=== PATIENT | female | born 2005 | race African-American/Black ===

== ENCOUNTER 2024-02-10 18:23 | Emergency (ER) | payer OTHER ==
--- NOTE | 2024-02-10 19:14 | ER ---
Nurse's Notes [facility] Name: Lolita Garcia Age: 19 yrs Sex: Female : 2005 Arrival Date: 02/10/2024 Time: 18:23 Bed 12 Private MD: Diagnosis: Syncope;Anemia complicating , third trimester Presentation: 02/09 19:04 Chief complaint: Patient states: I passed out at work a couple hours ago , has not been iw taking her prenatals, is anemic, is approx 32 weeks . Coronavirus screen: At this time, the client does not indicate any symptoms associated with coronavirus-19. Ebola Screen: No symptoms or risks identified at this time. 19:04 Acuity: SANTI[place] 3 iw 19:04 Method Of Arrival: Ambulatory iw 19:15 Initial Sepsis Screen: Does the patient meet any 2 criteria? No. Patient's initial vc1 sepsis screen is negative. Does the patient have a suspected source of infection? No. Patient's initial sepsis screen is negative. Risk Assessment: Do you want to hurt yourself or someone else? Patient reports no desire to harm self or others. Note PT STATES SHE IS ANEMIC AND DIDN'T TAKE HER IRON PILL TODAY. Onset of symptoms was February 10, 2024. Triage Assessment: 19:17 General: Appears in no apparent distress. comfortable, well groomed, well developed, vc1 well nourished, Behavior is calm, cooperative, appropriate for age. Pain: Denies pain. EENT: No deficits noted. No signs and/or symptoms were reported regarding the EENT system. 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 Cardiovascular: Heart tones S1 S2 Capillary refill < 3 seconds Patient's skin is warm and dry. Respiratory: Airway is patent Respiratory effort is even, unlabored, Respiratory pattern is regular, symmetrical, Breath sounds are clear bilaterally. GI: Abdomen is round Bowel sounds present X 4 quads. : No deficits noted. No signs and/or symptoms were reported regarding the genitourinary system. Derm: Skin is intact, is healthy with good turgor, Skin is dry, Skin is normal, Skin temperature is warm. Musculoskeletal: Circulation, motion, and sensation intact. Range of motion: intact in all extremities. Historical: - Allergies: 19:04 No Known Allergies; iw - PMHx: 19:04 None; iw - PSHx: 19:04 None; iw - Immunization history:: Adult Immunizations up to date. - Infectious Disease History:: Denies. - Social history:: Smoking status: Patient denies any tobacco usage or history of. Screenin:15 Abuse screen: Denies threats or abuse. Nutritional screening: No deficits noted. vc1 Tuberculosis screening: No symptoms or risk factors identified. 19:[address] [facility] ED Fall Risk Assessment (Adult) History of falling in the last 3 months, vc1 including since admission No falls in past 3 months (0 pts) Confusion or Disorientation No (0 pts) Intoxicated or Sedated No (0 pts) Impaired Gait No (0 pts) Mobility Assist Device Used No (0 pt) Altered Elimination No (0 pt) Score/Fall Risk Level 0 - 2 = Low Risk Oriented to surroundings, Maintained a safe environment, Educated pt \T\ family on fall prevention, incl call for assistance when getting out of bed. Assessment: 19:06 Reassessment: pt request to be discharged, will check FHT. iw Vital Signs: 19:04 BP 143 / 83; Pulse 102; Resp 18; Temp 97.7; Pulse Ox 100% on R/A; iw Vitals: 19:15 Heart Tones 134 bpm. vc1 ED Course: 18:25 Patient arrived in ED. mg5 18:31 Tamra Goldberg PA-C is PHCP. sb4 18:31 Junaid Gaines MD is Attending Physician. sb4 19:05 Triage completed. iw 19:14 Becky Lucio, RN is Primary Nurse. vc1 19:16 Arm band placed on right wrist. vc1 19:18 Patient has correct armband on for positive identification. Bed in low position. Call vc1 light in reach. Pulse ox on. NIBP on. 19:18 No provider procedures requiring assistance completed. Patient did not have IV access vc1 during this emergency room visit. 19:24 Provided Education on: F/U WITH OB. vc1 Administered Medications: No medications were administered Medication: 19:16 VIS not applicable for this client. vc1 Outcome: 19:14 Discharge ordered by . sb4 19:23 Discharged to home ambulatory, vc1 19:23 Condition: good 19:23 Discharge instructions given to patient, Instructed on discharge instructions, follow up and referral plans. Demonstrated understanding of instructions, follow-up care, 19:24 Patient left the ED. vc1 Signatures: Nelsy Rodrigez RN RN iw Becky Lucio RN RN vc1 Tamra Goldberg PA-C PA-C sb4 Daisy La mg5
--- NOTE | 2024-02-10 19:14 | EDPHYS ---
Physician Documentation [facility] Name: Lolita Garcia Age: 19 yrs Sex: Female : 2005 Arrival Date: 02/10/2024 Time: 18:23 Bed 12 Private MD: ED Physician Junaid Gaines HPI: 02/09 19:09 This 19 yrs old Black Female presents to ER via Ambulatory with complaints of Syncope. sb4 19:09 32 weeks presents status post syncopal episode at work. She believes she had a sb4 syncopal episode because she is anemic and has not taken her prenatals with iron. She states that she feels completely fine now. She only hit her knee when she passed out. Her work sent her here to be evaluated. She denies any dizziness, chest pain, shortness of breath. States that she feels baby moving. She has appointment with her OB in 10 days. Historical: - Allergies: 19:04 No Known Allergies; iw - PMHx: 19:04 None; iw - PSHx: 19:04 None; iw - Immunization history:: Adult Immunizations up to date. - Infectious Disease History:: Denies. - Social history:: Smoking status: Patient denies any tobacco usage or history of. ROS: 19:09 Constitutional: Negative for fever, chills, and weight loss, sb4 19:09 Neuro: Positive for syncope, 19:09 All other systems are negative, Exam: 19:09 Constitutional: This is a well developed, well nourished patient who is awake, alert, sb4 and in no acute distress. Head/Face: Normocephalic, atraumatic. Eyes: Extra-ocular motions intact. Periorbital areas with no swelling, redness, or edema. ENT: Mucous membranes moist. Cardiovascular: Regular rate and rhythm with a normal S1 and S2. Respiratory: Lungs have equal breath sounds bilaterally, clear to auscultation and percussion. No rales, rhonchi or wheezes noted. No increased work of breathing, no retractions or nasal flaring. Abdomen/GI: Soft, non-tender, no distension. Skin: Warm, dry with normal turgor. Normal color with no rashes, no lesions, and no evidence of cellulitis. Neuro: Awake and alert, GCS 15, oriented to person, place, time, and situation. Motor strength 5/5 in all extremities. Sensory grossly intact. Vital Signs: 19:04 BP 143 / 83; Pulse 102; Resp 18; Temp 97.7; Pulse Ox 100% on R/A; iw MDM: 18:37 Patient medically screened. sb4 19:10 Data reviewed: vital signs, nurses notes, and as a result, I will discharge patient. sb4 Counseling: I had a detailed discussion with the patient and/or guardian regarding the historical points, exam findings, and any diagnostic results supporting the discharge/admit diagnosis, the presence of at least one elevated blood pressure reading (>120/80) during this emergency department visit, lab results, radiology results, the need for outpatient follow up, an OB/Gyne specialist, to return to the emergency department if symptoms worsen or persist or if there are any questions or concerns that arise at home. Refusal of service: The patient/guardian displays adequate decision making capability and despite a detailed discussion of alternatives, benefits, risks, and consequences refuses: all lab tests. 19:13 ED course: . sb4 02/09 19:08 Order name: FHT's; Complete Time: 19:19 sb4 Administered Medications: No medications were administered Disposition: 19:57 Co-signature as Attending Physician, Junaid Gaines MD I reviewed the patient's care rn provided by the Advanced Practice Provider and agree with the diagnosis and treatment plan. Disposition Summary: 02/10/24 19:14 Discharge Ordered Notes: Location: Home sb4 Problem: new sb4 Symptoms: have improved sb4 Condition: Stable sb4 Diagnosis - Syncope sb4 - Anemia complicating , third trimester sb4 Followup: sb4 - With: Private Physician - When: 7 - 10 days - Reason: Recheck today's complaints, Re-evaluation by your physician Discharge Instructions: - Discharge Summary Sheet sb4 - and Anemia sb4 - Syncope, [id number] sb4 Forms: - Work release form sb4 - Patient Portal Instructions sb4 - Leadership Thank You Letter sb4 Signatures: Nelsy Rodrigez, RN Junaid Tirado MD MD rn Calcote, Vanessa, RN RN 1 Tamra Goldberg, DAMIEN PAMicha sb4
[2024-02-10 19:28] VITALS: BP 143/83; TEMP 97.7; O2SAT 100
== END 2024-02-10 19:24 | disposition home or self-care (01) ==
LOC: ER 18:23
DX: O99.013 Anemia complicating pregnancy, third trimester (principal); Z3A.32 32 weeks gestation of pregnancy
CPT/HCPCS: 99283